=== PATIENT | female | born 1970 | race Caucasian/White ===

== ENCOUNTER 2017-04-23 21:07 | Emergency (ER) | payer OTHER ==
--- NOTE | 2017-04-23 22:22 | ED ---
General Adult HPI - General Chief complaint: Weakness Stated complaint: vision problems/off balance Time Seen by Provider: 04/23/17 22:02 Source: patient, family Mode of arrival: ambulatory Limitations: no limitations - History of Present Illness Initial comments: This 47-year-old white female presents with a complaint of having some blurry vision, a feeling of unsteadiness with ambulation, and a sensation that she could not get her words out properly. This all occurred just shortly prior to arrival. She states that she has been dealing with some vaginal bleeding problems in her [facility] doctor apparently just recently increased her progesterone. She states that she just doubled her dose of her nightly progesterone tonight for the first time. The symptoms occurred approximately 30 minutes after taking the extra progesterone. She seems to think that the symptoms may be related to this increased progesterone. She denies any chest pain, shortness breath, fever, or chills. She denies any other complaints or modifying factors. She denies any extremity weakness or numbness. She denies any previous similar incidents. She does relate that her symptoms have essentially resolved at this time. - Related Data Home Medications Medication Instructions Recorded Confirmed Albuterol Sulfate [Proair Hfa] 2 puff INHALATION RT-QID PRN 04/23/17 04/23/17 Cholecalciferol [Vitamin D3] 5,000 unit PO MOWEFR 04/23/17 04/23/17 Estradiol [Estradiol 0.05 MG Patch] 1 patch TRANSDERM MOTH 04/23/17 04/23/17 Fluticasone Nasal [place] [Flonase 2 spr EA NOSTRIL DAILY PRN 04/23/17 04/23/17 Nasal [place]] Levothyroxine Sodium [Synthroid] 25 mcg PO DAILY 04/23/17 04/23/17 Multivitamins, Thera [Multivitamin 1 tab PO DAILY 04/23/17 04/23/17 (formulary)] Progesterone, Micronized 400 mg PO DIRECTED 04/23/17 04/23/17 [Progesterone] Allergies Allergy/AdvReac Type Severity Reaction Status Date / Time tetanus and diphtheria Allergy Rash/Hives Verified 04/23/17 22:23 toxoids cefprozil [From Cefzil] AdvReac Nausea & Verified 04/23/17 22:23 Vomiting Review of Systems ROS Statement: Those systems with pertinent positive or pertinent negative responses have been documented in the HPI. ROS Other: All systems not noted in ROS Statement are negative. Past Medical History Past Medical History: Thyroid Disorder History of Any Multi-Drug Resistant Organisms: None Reported Past Surgical History: Orthopedic Surgery, Tubal Ligation Past Psychological History: No Psychological Hx Reported Smoking Status: Never smoker Past Alcohol Use History: Occasional Past Drug Use History: None Reported General Exam - General Exam Comments Initial Comments: GENERAL: The patient is well nourished and well hydrated. VITAL SIGNS: Heart rate, blood pressure, respiratory rate reviewed as recorded in nurse's notes. EYES: Pupils are round and reactive. Extraocular movements are intact. No conjunctival / lid redness or swelling. ENT: No external evidence of injury, swelling, or ecchymosis. Airway is patent. Throat is clear. NECK: Nontender. No swelling or evidence of injury. No subcutaneous emphysema. Trachea is midline. No thyroid mass. HEART: Regular rate and rhythm. Good peripheral pulses. LUNGS/CHEST: Breath sounds clear and equal bilaterally. No rales, rhonchi, or wheezes. No ecchymosis, subcutaneous emphysema, or tenderness. ABDOMEN: Abdomen soft without tenderness. No palpable masses or organomegaly. No peritoneal signs. No abdominal wall swelling or ecchymosis. EXTREMITIES: No extremity tenderness. Normal muscle tone and function. No thoracolumbar tenderness. NEUROLOGIC: Sensation is grossly intact. Cranial nerve exam reveals face is symmetrical, tongue is midline, speech is clear. SKIN: No abrasions or ecchymosis is noted. No induration or masses noted. PSYCHIATRIC: Alert and oriented. Appropriate behavior and judgment. Limitations: no limitations Course Vital Signs 04/23/17 04/23/17 21:16 22:45 Temperature 97 F L Pulse Rate 99 85 Respiratory 20 18 Rate Blood Pressure 176/87 148/87 O2 Sat by Pulse 99 98 Oximetry Medical Decision Making - Medical Decision Making The patient was seen and examined. All diagnostics were reviewed. The computed tomography scan of the brain did not show any acute processes. The laboratory was all essentially within normal limits. She is still asymptomatic on recheck. The exact cause of her symptoms are not definitively determine but it potentially could be related to the increased dose of progesterone. She is instructed to go back to her normal dosing and discussed with her [facility] doctor further. She is instructed to have close follow-up with her primary care physician as well and return if symptoms do reoccur or worsen. - Lab Data Result diagrams: 04/23/17 22:35 04/23/17 22:35 Lab Results 04/23/17 04/23/17 Range/Units 22:35 22:35 WBC 8.7 (3.8-10.6) k/uL RBC 4.86 (3.80-5.40) m/uL Hgb 13.8 (11.4-16.0) gm/dL Hct 42.1 (34.0-46.0) % MCV 86.7 (80.0-100.0) fL MCH 28.4 (25.0-35.0) pg MCHC 32.8 (31.0-37.0) g/dL RDW 14.5 (11.5-15.5) % Plt Count 284 (150-450) k/uL Neutrophils % 72 % Lymphocytes % 20 % Monocytes % 6 % Eosinophils % 2 % Basophils % 1 % Neutrophils # 6.3 (1.3-7.7) k/uL Lymphocytes # 1.7 (1.0-4.8) k/uL Monocytes # 0.5 (0-1.0) k/uL Eosinophils # 0.1 (0-0.7) k/uL Basophils # 0.0 (0-0.2) k/uL Sodium 140 (137-145) mmol/L Potassium 4.0 (3.5-5.1) mmol/L Chloride 105 (98-107) mmol/L Carbon Dioxide 24 (22-30) mmol/L Anion Gap 11 mmol/L BUN 23 H (7-17) mg/dL Creatinine 1.10 H (0.52-1.04) mg/dL Est GFR (MDRD) Af Amer >60 (>60 ml/min/1.73 sqM) Est GFR (MDRD) Non-Af 54 (>60 ml/min/1.73 sqM) Glucose 100 H (74-99) mg/dL Calcium 10.0 (8.4-10.2) mg/dL Total Bilirubin 0.3 (0.2-1.3) mg/dL AST 30 (14-36) U/L ALT 38 (9-52) U/L Alkaline Phosphatase 102 (38-126) U/L Total Protein 7.6 (6.3-8.2) g/dL Albumin 4.6 (3.5-5.0) g/dL Disposition Clinical Impression: Blurry vision, Unsteadiness Disposition: HOME SELF-CARE Condition: Good Additional Instructions: We saw you today for some blurry vision and unsteadiness with ambulation. This potentially may have been related to the increase in your progesterone. Please go back to your normal progesterone dosing and have close follow-up with your primary care doctor and [facility]. Referrals: Sin Polanco MD [Primary Care Provider] - 1-2 days Time of Disposition: 00:07
[2017-04-23 22:47] VITALS: RESP 18
[2017-04-23 22:54] LABS: Basophils % (A) 1 %; CH 28.3; CHCM 32.8; Eosinophils # (A) 0.1 k/uL (0-0.7); Eosinophils % (A) 2 %; HCT 42.1 % (34.0-46.0); HDW 2.54; HGB 13.8 gm/dL (11.4-16.0); Luc # (Auto) 0.09; Luc % (Auto) 1; Lymphocytes # (A) 1.7 k/uL (1.0-4.8); Lymphocytes % (A) 20 %; MCH 28.4 pg (25.0-35.0); MCHC 32.8 g/dL (31.0-37.0); MCV 86.7 fL (80.0-100.0); Mean Platelet Volume 7.6; Monocytes # (A) 0.5 k/uL (0-1.0); Monocytes % (A) 6 %; Neutrophils # (A) 6.3 k/uL (1.3-7.7); Neutrophils % (A) 72 %; RBC 4.86 m/uL (3.80-5.40); RDW 14.5 % (11.5-15.5); WBC 8.7 k/uL (3.8-10.6); WBC (Perox) 8.58
[2017-04-23 23:00] LABS: ALT 38 U/L (9-52); AST 30 U/L (14-36); Alkaline Phosphatase 102 U/L (38-126); Anion Gap 11 mmol/L; Blood Urea Nitrogen 23 mg/dL (7-17); Carbon Dioxide 24 mmol/L (22-30); Chloride 105 mmol/L (98-107); Glucose 100 mg/dL (74-99); Non-African American GFR(MDRD) 54 (>60 ml/min/1.73 sqM); Sodium 140 mmol/L (137-145); Total Bilirubin 0.3 mg/dL (0.2-1.3); Total Protein 7.6 g/dL (6.3-8.2)
--- NOTE | 2017-04-23 23:46 | CT ---
EXAMINATION TYPE: CT brain wo con DATE OF EXAM: 04/23/2017 COMPARISON: NONE HISTORY: No prior, pt had short period of visual disturbance and difficulty with forming words CT DLP: 999.80 mGycm. Automated Exposure Control for Dose Reduction was Utilized. TECHNIQUE: CT scan of the head is performed without contrast. Findings Ventricles and sulci appear normal. There is no mass effect nor midline shift. There is no sign of in tracranial hemorrhage. The calvarium is intact. CONCLUSION: Negative CT scan of the brain.
[2017-04-24 00:18] VITALS: BP 142/78; PULSE 78; TEMP 98.5
== END 2017-04-24 00:18 | disposition home or self-care (01) ==
LOC: EC 21:07
DX: H53.8 Other visual disturbances (principal); R26.81 Unsteadiness on feet; R53.1 Weakness; E07.9 Disorder of thyroid, unspecified; Z79.899 Other long term (current) drug therapy; Z88.7 Allergy status to serum and vaccine; Z88.8 Allergy status to other drugs, medicaments and biological substances
CPT/HCPCS: 36415; 70450; 80053; 85025; 93005; 99285